=== PATIENT | female | born 2005 | race Caucasian/White ===

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

== ENCOUNTER 2023-01-02 11:15 | Observation (INO) ==
[2023-01-02 11:53] LABS: ABS Eosinophils 0.1 10^3/uL (0.0-0.5); ABS Lymphocytes 1.8 10^3/uL (1.0-4.8); ABS Monocytes 0.4 10^3/uL (0.0-0.9); ABS Neutrophils 5.3 10^3/uL (1.5-7.6); ABS Nucleated RBC 0.01 10^3/ul; Hematocrit 23.9 % (35-45); Hemoglobin 8.3 g/dL (11.5-14.3); Lymphocyte % 23.6 %; Mean Corpuscular Hemoglobin 31.4 pg (27-33); Mean Corpuscular Hgb Conc 34.9 g/dL (31-36); Mean Corpuscular Volume 90.1 fL (80-97); Mean Platelet Volume 8.2 fL (7.5-11.2); Nucleated Red Blood Cells % 0.1 /100 WBC (0.0-0.4); Platelet Count 213 10^3/uL (150-450); Red Blood Count 2.66 10^6/uL (3.63-4.92); White Blood Count 7.5 10^3/uL (3.8-11.8)
[2023-01-02 12:39] LABS: Albumin 3.7 g/dL (3.2-5.2); Albumin/Globulin Ratio 1.8 (1-3); Calcium 8.6 mg/dL (8.6-10.3); Creatinine, Serum 0.66 mg/dL (0.51-0.95); Globulin 2.1 g/dL (2-4); Potassium 3.9 mmol/L (3.5-5.0); Total Bilirubin 0.5 mg/dL (0.2-1.0); Total Protein 5.8 g/dL (6.4-8.9); eGFR CKD-EPI 129.5 (>60)
[2023-01-02 12:44] LABS: HCG Pregnancy 951.51 mIU/mL
[2023-01-02 12:52] LABS: TSH Ultra Thyroid Stim Horm 2.69 mcIU/mL (0.34-5.60)
[2023-01-02] MEDS: Lactated Ringers 1000 ml BAG 1,000 ML IV SCH ×2 (13:25→15:22)
[2023-01-02] MEDS ORDERED: Lidocaine 2% PF 5 ML VIAL ONE (15:28)
[2023-01-02] MEDS ORDERED: Propofol 10 MG/ML 20 ML BTL ONE (15:28)
[2023-01-02] MEDS ORDERED: Rocuronium 50 mg VIAL 10 mg/ml 5 ml VIAL (50 mg) ONE (15:28)
[2023-01-02] MEDS ORDERED: fentaNYL 100 mcg/2 ml 50 MCG/ML VIAL ONE (15:28)
[2023-01-02] MEDS ORDERED: Midazolam 2 mg/2 ml VIAL 1 mg/ml 2 ml VIAL (2 mg) ONE (15:34)
[2023-01-02] MEDS ORDERED: Phenylephrine 40 mcg/mL 10mL (400mcg) SYRINGE ONE (16:01)
[2023-01-02] MEDS ORDERED: Acetaminophen IV 1 GM/100ML 1,000 MG/100 ML BAG IV ONE (16:22)
[2023-01-02] MEDS ORDERED: Methylergonovine 0.2 mg AMPULE 1 ml AMP ONE (16:28)
[2023-01-02] MEDS ORDERED: DOXYcycline IV 200 MG in NS 250 mL *Pre-Op OBGYN IVPB ONE (16:30)
[2023-01-02] MEDS ORDERED: Oxytocin 10 UNITS/ML 1 ML VIAL ONE (16:36)
[2023-01-02 17:18] LABS: Hematocrit 16.5 % (35-45); Hemoglobin 5.8 g/dL (11.5-14.3)
[2023-01-02 17:30] LABS: INR 1.2 (0.88-1.18)
[2023-01-02 17:40] LABS: White Blood Count 4.5 10^3/uL (3.8-11.8)
[2023-01-02 17:41] LABS: ABS Lymphocytes 1.8 10^3/uL (1.0-4.8); ABS Monocytes 0.2 10^3/uL (0.0-0.9); ABS Neutrophils 2.5 10^3/uL (1.5-7.6); ABS Nucleated RBC 0.02 10^3/ul; Eosinophil % 0.1 %; Lymphocyte % 39.9 %; Mean Corpuscular Hemoglobin 31.1 pg (27-33); Mean Corpuscular Hgb Conc 35.2 g/dL (31-36); Mean Corpuscular Volume 88.5 fL (80-97); Mean Platelet Volume 8.7 fL (7.5-11.2); Nucleated Red Blood Cells % 0.4 /100 WBC (0.0-0.4); Platelet Count 164 10^3/uL (150-450); Red Blood Count 1.86 10^6/uL (3.63-4.92)
[2023-01-02] MEDS ORDERED: Lactated Ringers 1000 ml BAG 1,000 ML IV SCH (18:00)
[2023-01-02 19:49] LABS: Rapid COVID-19 Molecular Undetected (Undetected)
[2023-01-02 21:16] LABS: Urine Appearance Clear; Urine Bilirubin Negative (Negative); Urine Blood 2+ (Negative); Urine Color Colorless; Urine Glucose Negative (Negative); Urine Ketones Negative (Negative); Urine Nitrite Negative (Negative); Urine Protein Negative (Negative); Urine Specific Gravity 1.008 (1.002-1.030); Urine Urobilinogen Negative (Negative)
[2023-01-02 21:50] LABS: Urine Bacteria Absent (Absent); Urine Red Blood Cell 3+(>10/hpf) (Absent); Urine Squamous Epithelial Cell Present (Absent); Urine White Blood Cell Trace(0-5/hpf) (Absent)
[2023-01-02 23:35] LABS: ABS Lymphocytes 0.8 10^3/uL (1.0-4.8); ABS Monocytes 0.1 10^3/uL (0.0-0.9); ABS Neutrophils 5.6 10^3/uL (1.5-7.6); Hematocrit 25.2 % (35-45); Lymphocyte % 12.3 %; Mean Corpuscular Hemoglobin 30.4 pg (27-33); Mean Corpuscular Hgb Conc 35.8 g/dL (31-36); Mean Corpuscular Volume 84.8 fL (80-97); Mean Platelet Volume 8.4 fL (7.5-11.2); Nucleated Red Blood Cells % 0.1 /100 WBC (0.0-0.4); Platelet Count 174 10^3/uL (150-450); Red Blood Count 2.98 10^6/uL (3.63-4.92); Red Cell Distribution Width 14.8 % (12-17); White Blood Count 6.5 10^3/uL (3.8-11.8)
[2023-01-03 05:37] VITALS: BP 120/75
== END 2023-01-03 09:20 | disposition home or self-care (01) ==
LOC: ED 11:15 → SSU 15:44 → OR 15:44
PROVIDERS: ADMIT Obstetrics & Gynecology; ATTEND Obstetrics & Gynecology
PROC: O.GYD&C (2023-01-02 15:30)